=== PATIENT | female | born 1955 | race Caucasian/White ===

== ENCOUNTER 2020-08-04 07:16 | Outpatient (RCR) | payer BC, SELFPAY ==
[2020-08-04] MEDS: COVID-19 VACC, MRNA(PFIZER)/PF 30 MCG/0.3 ML SYRINGE IM (16:54)
[2020-08-25] MEDS: COVID-19 VACC, MRNA(PFIZER)/PF 30 MCG/0.3 ML SYRINGE IM (14:28)
== END 2020-11-03 23:59 ==
LOC: IMMUN 07:16
PROVIDERS: PCP Family Medicine; Referring Provider Family Medicine; Visit Provider Family Medicine
DX: Z23 Encounter for immunization (principal)
CPT/HCPCS: 0001A; 0002A; 91300

== ENCOUNTER → 2020-08-06 07:23 | Outpatient (CLI) | payer BC, SELFPAY ==
--- NOTE | 2020-08-06 07:26 | CT_ITS ---
STUDY: LOW DOSE CT LUNG CANCER SCREENING REASON FOR EXAM: Female, 65 years old. Code use. COPD without exacerbation. RADIATION DOSAGE (If Supplied By Facility): CTDIvol = ( 3.02 ) mGy, DLP = ( 98.55 ) mGycm TECHNIQUE: No contrast was administered. Low dose technique was utilized (average mAS-38 and kVp 120). 1.25 mm axial source images with a slice interval of 1.25-mm were reconstructed in lung windows. 2.5 mm axial source images with a slice interval of 2.5-mm were reconstructed in lung windows. 5.0 mm axial source images with a slice interval of 5.0-mm were reconstructed in soft tissue windows. Nodule measured using lung windows on PACS and/or independent workstation with automated measurement of minimum and maximum diameter. Nodule measurement reported as average diameter rounded to the nearest whole number. Growth is defined as an increase ins size of greater than 1.5 mm. COMPARISON: None. NODULES: Nodule #: 1 Density: Solid Lung location: Right upper lobe: Pleural-based Location in series: Series Number: 2 Image: 39 Size - D1 x D2 mm: 2 x 2 mm: 2 mm average diameter Margin: Fuzzy Shape: Brown Calcification: No Fat: No Temporal comparison: None Nodule #: 2 Density: Solid Lung location: Left upper lobe: Pleural-based Location in series: Series Number: 2 Image: 59 Size - D1 x D2 mm: 2 x 2 mm: 2 mm average diameter Margin: Fuzzy Shape: Triangular Calcification: No Fat: No Temporal comparison: None Nodule #: 3 Density: Solid Lung location: Left upper lobe: Pleural-based Location in series: Series Number: 2 Image: 74 Size - D1 x D2 mm: 2 x 2 mm: 2 mm average diameter Margin: Smooth Shape: Round Calcification: No Fat: No Temporal comparison: None Total lung nodules (excluding granulomas): 3 Emphysema: There is mild emphysematous changes of the lungs. Endobronchial lesion: None Aorta: Atherosclerotic changes of the thoracic aorta without aneurysm. Coronary arteries: Coronary artery calcifications. Heart: The heart is normal in size. Mitral valve calcifications. Pulmonary artery: Normal Mediastinal nodes: None Other chest and abdominal findings: Degenerative changes of the lower thoracic spine. CT/Low Dose CT Lung Screening IMPRESSION: Lung-RADS category 2 - Continue annual screening with LDCT in 12 months. IMPORTANT NOTES FOR USE: ACR Lung-RADS Version 1.0 Assessment Categories Release Date: September 23, 2013 Category: Coded 0-4 bases on nodule(s) with highest degree of suspicion. Negative screen is defined as categories 1 and 2; a positive screen is defined as categories 3 and 4. Category 3 and 4A nodules that are unchanged on interval CT should be coded as category 2, and individuals returned to screening in 12 months. Category 4X: Category 3 or 4 nodules with additional imaging findings that increase the suspicion of lung cancer, such as spiculation, GGN that doubles in size in 1 year, enlarged lymph notes, etc. Category Modifiers: S (significant finding unrelated to lung cancer) and C (prior history of treated lung cancer) may be added to the 0-4 Lung-RADS Electronically Signed: Ferny Griffith DO at 17:13 EST Tel [phone], Service support ,
== END ==
PROVIDERS: PCP Family Medicine; Visit Provider Family Medicine
DX: J44.9 Chronic obstructive pulmonary disease, unspecified (principal); Z12.2 Encounter for screening for malignant neoplasm of respiratory organs; Z72.0 Tobacco use
CPT/HCPCS: 71271

== ENCOUNTER → 2022-09-08 | Outpatient (CLI) | payer MEDICARE, SELFPAY ==
--- NOTE | 2022-09-08 14:15 | CT_ITS ---
STUDY: LOW DOSE CT LUNG CANCER SCREENING REASON FOR EXAM: Female, 67 years old. One pack per day smoker x40 years RADIATION DOSAGE (If Supplied By Facility): CTDIvol = ( 1.59 ) mGy, DLP = ( 55.99 ) mGycm TECHNIQUE: No contrast was administered. Low dose technique was utilized (average mAS-38 and kVp 120). 1.25 mm axial source images with a slice interval of 1.25-mm were reconstructed in lung windows. 2.5 mm axial source images with a slice interval of 2.5-mm were reconstructed in lung windows. 5.0 mm axial source images with a slice interval of 5.0-mm were reconstructed in soft tissue windows. COMPARISON: 08/06/2020 Findings: Lung windows show the lungs to be normally expanded. Stable faint 2 mm nodule in the right upper lobe on axial image 52. Stable faint 2 mm nodule in the left upper lobe on axial image 72. There is a stable 3 mm noncalcified nodule in the right upper lobe on axial image 78. No new suspicious noncalcified mass or nodule is noted. There are a few scattered punctate granulomas calcifications noted. No organized infiltrate or effusion. Limited soft tissue windows show normal-appearing thyroid gland. No suspicious axillary, mediastinal, or perihilar mass or adenopathy. No pericardial effusions or calcified coronary vessels. Limited cuts through the upper abdomen do not show a suspicious abnormality. Bony structures show degenerative change. CT/Low Dose CT Lung Screening IMPRESSION: Lung-RADS category 2 - Continue annual screening with LDCT in 12 months. IMPORTANT NOTES FOR USE: ACR Lung-RADS Version 1.1 Assessment Categories Release Date: 2018 Category: Coded 0-4 bases on nodule(s) with highest degree of suspicion. Negative screen is defined as categories 1 and 2; a positive screen is defined as categories 3 and 4. Category 3 and 4A nodules that are unchanged on interval CT should be coded as category 2, and individuals returned to screening in 12 months. Category 4X: Category 3 or 4 nodules with additional imaging findings that increase the suspicion of lung cancer, such as spiculation, GGN that doubles in size in 1 year, enlarged lymph notes, etc. Category Modifiers: S (significant finding unrelated to lung cancer) Electronically Signed: Shaggy Cabello MD at 14:55 EDT ,
== END | disposition home or self-care (01) ==
LOC: CT 14:10
PROVIDERS: PCP Registered Nurse; Referring Provider Registered Nurse; Visit Provider Registered Nurse
DX: J44.9 Chronic obstructive pulmonary disease, unspecified (principal); Z87.891 Personal history of nicotine dependence
CPT/HCPCS: 71271

== ENCOUNTER → 2024-08-13 | Outpatient (CLI) | payer MEDICARE, SELFPAY ==
[2024-08-13 07:38] LABS: Hematocrit 46.4 % (37-47); Hemoglobin 15.6 g/dL (12.0-15.0); Mean Corp Hgb Conc 33.6 g/dL (32-36); Mean Corpuscular Hgb 29.9 pg (27.0-32.0); Mean Corpuscular Volume 89.1 fL (81-99); Mean Platelet Vol. 10.9 fl (6.2-12.0); Platelet Count 302 K/mm3 (150-450); RBC Distribution Width CV 14.6 % (11.6-14.6); RBC Distribution Width SD 47.6 fl (35.1-43.9); Red Blood Count 5.21 M/mm3 (4.2-5.4)
[2024-08-13 08:24] LABS: Hemoglobin A1c 5.9 % (<=5.6)
[2024-08-13 08:31] LABS: ALB/GLOB Ratio 1.5 RATIO (0.9-2.4); AST(SGOT) 18 U/L (<=31); Alanine Aminotransfer ALT/SGPT 18 U/L (<=34); Albumin, Serum 4.3 g/dL (3.4-4.8); Alkaline Phosphatase 111 U/L (35-104); Anion Gap 13 (5-15); BUN 13 mg/dL (4-19); BUN/Creat Ratio 14.2 RATIO (10-20); Calcium,Total 10.1 mg/dL (7.6-11.0); Carbon Dioxide 22.9 mmol/L (21.0-32.0); Chloride 103 mmol/L (98-108); Cholesterol 221 mg/dL (<=200); Creatinine, Serum 0.92 mg/dL (0.70-1.20); EST Glomerular Filtration Rate 68 (>60); Globulin 2.9 g/dL (2.2-4.2); Glucose 118 mg/dL (70-99); High Density Lipoprotein 78 mg/dL; Low Density Lipoprotein Calc. 128 mg/dL; Potassium 4.7 mmol/L (3.3-5.1); Protein, Total 7.2 g/dL (5.9-8.4); Sodium Level 139 mmol/L (133-145); Thyroid Stim Hormone (TSH) 0.943 uIU/mL (0.300-4.200); Triglycerides 76 mg/dL; Very Low Density Lipoprotein 15 mg/dL (5-40); Vitamin D,25 Hydroxy 52.1 ng/mL (30-100); cholesterol:hdl ratio screen 2.83
== END | disposition home or self-care (01) ==
LOC: LAB 06:12
PROVIDERS: PCP Registered Nurse; Visit Provider Registered Nurse
DX: Z00.00 Encounter for general adult medical examination without abnormal findings (principal); Z13.1 Encounter for screening for diabetes mellitus; Z13.29 Encounter for screening for other suspected endocrine disorder; Z13.21 Encounter for screening for nutritional disorder
CPT/HCPCS: 36415; 80053; 80061; 82306; 83036; 84439; 84443; 85027

== ENCOUNTER → 2025-03-19 | Outpatient (CLI) | payer MEDICARE, SELFPAY ==
--- OUTSIDE RECORDS SUMMARY | 2025-03-19 06:53 | XMS RPT_ITS | CCD ---
Author Organization [facility] Care Team Providers Care Cardiopulmonary Technician And Eeg Tech Name Role Phone CHRISTIN [employer] I ASSEMBLER-DECK HAND, TELMA A Primary Care Physi megan CHRISTIN [employer] I ASSEMBLER-DECK HAND, TELMA A Attending Un available CHRISTIN [employer] I ASSEMBLER-DECK HAND, TELMA A Primary Care Un available CHRISTIN [employer] I ASSEMBLER-DECK HAND, TELMA Garcia Attending Un available CHRISTIN [employer] I ASSEMBLER-DECK HAND, TELMA A Primary Care Un available CHRISTIN [employer] I ASSEMBLER-DECK HAND, TELMA Garcia Attending Un available CHRISTIN [employer] I ASSEMBLER-DECK HAND, TELMA A Primary Care Un available CAROLINA EASON, DR YEN Francois Attending Unavailable CHRISTIN [employer] I ASSEMBLER-DECK HAND, TELMA Garcia Primary Care Un available CHRISTIN [employer] I ASSEMBLER-DECK HAND, TELMA Garcia Attending Un available CHRISTIN [employer] I ASSEMBLER-DECK HAND, TELMA A Primary Care Un available CAROLINA EASON, DR YEN Francois Attending Unavailable CHRISTIN [employer] I ASSEMBLER-DECK HAND, TELMA A Primary Care Un available CHRISTIN [employer] I ASSEMBLER-DECK HAND, TELMA A Primary Care Un available CAROLINA EASON, DR YEN Francois Attending Unavailable Christin FOREST NURSERY SUPERVISOR, Telma Attending Darby Waller FOREST NURSERY SUPERVISOR, Telma Primary Care Unavailnithya Waller FOREST NURSERY SUPERVISOR-C, Telma Primary Care Provider Christin FOREST NURSERY SUPERVISOR-C, Telma Attending Provider Medications Current Medications Medication Drug Class(es) Dates Sig (Normalized) Sig (Original) albuterol MDI (90 mcg/inh) CFC free inhalation aerosol (4 sources) Start: 11-27-2023 End: 05-25-2024 take 2 puff(s) by inhalation every six hours as needed for wheezing albuterol MDI (90 mcg/inh) CFC free inhalation aerosol 2 puff(s), Inhalation, q6h, PRN as needed for wheezing, # 18 gram(s), 5 Refill(s), Pharmacy: [facility], COPD without exacerbation Multiple lung nodules on CT, 160, cm, 11/27/23 10:56:00 EDT, Height, kg, 11/27/23 10:56:00 EDT, Dosing Weight Start Date: 11/27/23 Stop Date: 05/25/24 Status: Ordered amLODIPine 5 mg oral tablet (5 sources) Dihydropyridine Calcium Channel José Miguel Start: 09-08-2023 End: 09-02-2024 amLODIPine 5 mg oral tablet Dose : 5 mg = 1 tab(s), Oral, qDay, # 30 tab(s), 5 Refill(s), Pharmacy: [facility], COPD without exacerbation, 160, cm, 02/01/24 13:04:00 EDT, Height, kg, 02/01/24 13:04:00 EDT, Dosing Weight Start Date: 03/06/24 Stop Date: 09/02/24 Status: Ordered Start: 03-10-2023 End: 09-06-2023 amLODIPine 5 mg oral tablet Dose : 5 mg = 1 tab(s), Oral, qDay, # 30 tab(s), 5 Refill(s), Pharmacy: [facility], COPD without exacerbation, 160, cm, 03/10/23 12:23:00 EDT, Height, kg, 03/10/23 12:23:00 EDT, Dosing Weight Start Date: 03/10/23 Stop Date: 09/06/23 Status: Ordered aspirin 81 mg delayed release oral tablet (3 sources) Platelet Aggregation Inhibitor, Nonsteroidal Anti-inflammatory Drug Start: 02-01-2024 aspirin 81 mg oral delayed release tablet Dose : 81 mg = 1 tab(s), Oral, Daily, # 30 tab(s), 0 Refill(s), other reason (Rx) Start Date: 02/01/24 Status: Ordered atorvastatin 40 mg oral tablet (3 sources) HMG-CoA Reductase Inhibitor Start: 02-01-2024 atorvastatin 40 mg oral tablet Dose : 40 mg = 1 tab(s), Oral, Daily, # 90 tab(s), 3 Refill(s), Pharmacy: [facility], 160, cm, 02/01/24 13:04:00 EDT, Height, kg, 02/01/24 13:04:00 EDT, Dosing Weight Start Date: 02/01/24 Status: Ordered Breztri Aerosphere 160 mcg-9 mcg-4.8 mcg/inh inhalation aerosol (4 sources) Start: 11-27-2023 End: 05-25-2024 take 1 dose by mouth twice daily Breztri Aerosphere 160 mcg-9 mcg-4.8 mcg/inh inhalation aerosol Dose = 2 puff(s), Inhalation, BID, rinse mouth and throat after use, # 3 EA, 1 Refill(s), Pharmacy: [facility], COPD without exacerbation Multiple lung nodules on CT, 160, cm, 11/27/23 10:56:00 EDT, Height, kg, 11/27/23 10:56:00 EDT, Dosing Weight Start Date: 11/27/23 Stop Date: 05/25/24 Status: Ordered famotidine 10 mg oral tablet (1 source) Histamine-2 Receptor Antagonist Start: 04-12-2024 famotidine 10 mg oral tablet Dose : 10 mg = 1 tab(s), Oral, qDay, # 14 tab(s), 0 Refill(s) Start Date: 04/12/24 Status: Ordered fluticasone / salmeterol (2 sources) Corticosteroid, beta2-Adrenergic Agonist Start: 02-27-2023 End: 05-28-2023 take 1 dose by inhalation twice daily Advair Diskus 250 mcg-50 mcg inhalation powder Dose = 1 puff(s), Inhalation, BID, # 1 EA, 2 Refill(s), Pharmacy: [facility], COPD without exacerbation, 160, cm, 08/24/22 11:24:00 EDT, Height, kg, 08/24/22 11:24:00 EDT, Dosing Weight Start Date: 02/27/23 Stop Date: 05/28/23 Status: Ordered Start: 08-24-2022 End: 11-22-2022 take 1 dose by inhalation twice daily Advair Diskus 250 mcg-50 mcg inhalation powder Dose = 1 puff(s), Inhalation, BID, # 1 EA, 2 Refill(s), Pharmacy: [facility], COPD without exacerbation, 160, cm, 08/24/22 11:24:00 EDT, Height Start Date: 08/24/22 Stop Date: 11/22/22 Status: Ordered lisinopril 40 mg oral tablet (6 sources) Angiotensin Converting Enzyme Inhibitor Start: 02-26-2024 End: 05-26-2024 lisinopril 40 mg oral tablet Dose : 80 mg = 2 tab(s), Oral, qDay, filling in lieu of pcp, # 180 tab(s), 0 Refill(s), Pharmacy: [facility], 160, cm, 02/01/24 13:04:00 EDT, Height, kg, 02/01/24 13:04:00 EDT, Dosing Weight Start Date: 02/26/24 Stop Date: 05/26/24 Status: Ordered Start: 04-04-2022 End: 02-22-2024 lisinopril 40 mg oral tablet Dose : 80 mg = 2 tab(s), Oral, qDay, # 180 tab(s), 3 Refill(s), Pharmacy: [facility], 160, cm, 08/24/22 11:24:00 EDT, Height, kg, 08/24/22 11:24:00 EDT, Dosing Weight Start Date: 02/27/23 Stop Date: 02/22/24 Status: Ordered meclizine hydrochloride 25 m g oral tablet (1 source) Antiemetic Start: 07-08-2022 End: 09-06-2022 meclizine 25 mg oral tablet Dose : 25 mg = 1 tab(s), Oral, TID, PRN as needed for dizziness, X 30 day(s), # 30 tab(s), 1 Refill(s), 09/06/22 12:36:00 EDT, Pharmacy: [facility], Vertigo, 160, cm, 07/08/22 12:20:00 EST, Height Start Date: 07/08/22 Stop Date: 09/06/22 Status: Ordered melatonin 10 mg oral capsule (6 sources) Start: 02-01-2024 melatonin 10 m g oral capsule Dose : 10 mg = 1 cap(s), Oral, qHS, PRN for insomnia, # 90 cap(s), 0 Refill(s) Start Date: 02/01/24 Status: Ordered Start: 03-11-2019 melatonin 5 mg oral tablet Dose : 5 mg = 1 tab(s), Oral, qHS, PRN as needed for insomnia, # 60 tab(s), 0 Refill(s) Start Date: 03/11/19 Status: Ordered 24 hr metoprolol succinate 50 mg extended release oral tablet (3 sources) beta-Adrenergic José Miguel Start: 02-01-2024 Toprol -XL 50 mg oral tablet, extended release Dose : 50 mg = 1 tab(s), Oral, qDay, # 90 tab(s), 3 Refill(s), Pharmacy: [facility], 160, cm, 02/01/24 13:04:00 EDT, Height, kg, 02/01/24 13:04:00 EDT, Dosing Weight Start Date: 02/01/24 Status: Ordered montelukast 10 mg oral tablet (6 sources) Leukotriene Receptor Antagonist Start: 08-16-2023 montelukast 10 mg oral tablet Dose : 10 mg = 1 tab(s), Oral, qDay, # 90 tab(s), 1 Refill(s), Pharmacy: [facility], COPD without exacerbation, 160, cm, 03/10/23 12:23:00 EDT, Height, kg, 03/10/23 12:23:00 EDT, Dosing Weight Start Date: 08/16/23 Status: Ordered Start: 02-27-2023 montelukast 10 mg oral tablet Dose : 10 mg = 1 tab(s), Oral, qDay, # 90 tab(s), 2 Refill(s), Pharmacy: [facility], COPD without exacerbation, 160, cm, 08/24/22 11:24:00 EDT, Height, kg, 08/24/22 11:24:00 EDT, Dosing Weight Start Date: 02/27/23 Status: Ordered Start: 08-24-2022 montelukast 10 mg oral tablet Dose : 10 mg = 1 tab(s), Oral, qDay, # 90 tab(s), 0 Refill(s), Pharmacy: [facility], COPD without exacerbation, 160, cm, 08/24/22 11:24:00 EDT, Height Start Date: 08/24/22 Status: Ordered Multi-Day Plus Minerals oral tablet (6 sources) Start: 03-11-2019 take 1 tablet by mouth once daily Multi-Day Plus Minerals oral tablet Dose = 1 tab(s), Oral, Daily, # 30 tab(s), 0 Refill(s) Start Date: 03/11/19 Status: Ordered pravastatin sodium 40 mg oral tablet (3 sources) HMG-CoA Reductase Inhibitor Start: 08-16-2023 End: 02-12-2024 pravastatin 40 mg oral tablet Dose : 40 mg = 1 tab(s), Oral, qHS, # 90 tab(s), 1 Refill(s), Pharmacy: [facility], 160, cm, 03/10/23 12:23:00 EDT, Height, kg, 03/10/23 12:23:00 EDT, Dosing Weight Start Date: 08/16/23 Stop Date: 02/12/24 Status: Ordered Start: 08-24-2022 take 1 tablet by josé miguel once daily pravastatin 40 mg oral tablet See Instructions, TAKE 1 TABLET BY MOUTH EVERY DAY, # 90 tab(s), 3 Refill(s), Pharmacy: [facility], 160, cm, 08/24/22 11:24:00 EDT, Height, kg, 08/24/22 11:24:00 EDT, Dosing Weight Start Date: 08/24/22 Status: Ordered Stool Softener with Laxative (1 source) Start: 04-12-2024 Stool Softener with Laxative Oral, qHS, 0 Refill(s) Start Date: 04/12/24 Status: Ordered Vitamin D3 (6 sources) Start: 03-11-2019 take 1 tablet by mouth once daily Vitamin D3 Dose : 5,000 Int unit =, Oral, Daily, # 30 tab(s), 0 Refill(s) Start Date: 03/11/19 Status: Ordered Completed/Discontinued Medications Medication Drug Class(es) Dates Sig (Normalized) Sig (Original) MiscMED Miscellaneous Medication (1 source) Start: 03-10-2023 MiscMED Miscellaneous Medication See Instructions, Takes a magneisum supplement, 250mg once day, 0 Refill(s), 72.9 Start Date: 03/10/23 Status: Ordered Problems Problem Classification Problem Date Documented Da te Episodic/Chronic Allergic reactions (7 sources) Allergic disposition; Translations: [Allergy, unspecified, initial encounter] Episodic Cardiac dysrhythmias (9 sources) Ventricular premature beats; Translations: [Nonsustained ventricular tachycardia ] 07-29-2020 Chronic Cataract (6 sources) Cataract 06-03-2019 Chronic Chronic kidney disease (4 sources) Chronic kidney disease stage 3 11-27-2023 Chronic Chronic obstructive pulmonary disease and bronchiectasis (7 sources) Chronic obstructive lung disease; Translations: [Chronic obstructive pulmonary disease, unspecified] Chronic Conditions associated with dizziness or vertigo (6 sources) Vertigo 07-08-2022 Episodic Coronary atherosclerosis and other heart disease (3 sources) Calcification of coronary artery 01-31-2024 Chronic Disorders of lipid metabolism (6 sources) Dyslipidemia 06-03-2019 Chronic Esophageal disorders (6 sources) Gastroesophageal reflux disease 04-01-2022 Chronic Essential hypertension (16 sources) Hypertensive disorder; Translations: [Essential (primary) hypertension] Onset: 3 07-29-2020 Chronic Hepatitis (6 sources) Viral hepatitis C 06-03-2019 Episodic Other gastrointestinal disorders (6 sources) Constipation 04-01-2022 Episodic Other lower respiratory disease (6 sources) Multiple nodules of lung 04-01-2022 Episodic Other screening for suspected conditions (not mental disorders or infectious disease) (2 sources) Encounter for screening mammogram for malignant neoplasm of breast; Translations: [Encounter for screening mammogram for malignant neoplasm of breast] Onset: Episodic Residual codes; unclassified (6 sources) Tobacco user 06-04-2019 Episodic Substance-related disorders (6 sources) Nicotine dependence 07-08-2022 Chronic Unclassified (9 sources) Patient encounter status 03-10-2023 Results Test Name Value Interpretation Reference Range Facility Anion gap in Serum or Plasma Ordered By: Telma Waller on 08-13-2024 Anion gap [Moles/Vol] 13 mmol/L - [facility] BUN/creatinine ratioOrdered By: Telma Waller on 08-13-2024 Urea nitrogen/Creatinine [Mass ratio] 14.2 mg/mg 03-17 [facility] Bilirubin, totalOrdered By: Telma Waller on 08-13-2024 Bilirubin [Mass/Vol] 0.40 mg/dL 0.00-1.30 [facility] CBC-Complete Blood Cnt No Di ffon 08-13-2024 Erythrocyte distribution width (RBC) [Ratio] 14.6 % Normal 11.6-14.6 [facility] Comment on above: Performed By: #### L 500.4050, L100.0500, L501.9520, L506.0400, L506.1001, L500.4100, L501.9985 #### [facility] [address] [place], [address] Hematocrit (Bld) [Volume fraction] 46.4 % Normal 37-47 [facility] Comment on above: Performed By: #### L 500.4050, L100.0500, L501.9520, L506.0400, L506.1001, L500.4100, L501.9985 #### [facility] [address] [place], [address] Hemoglobin (Bld) [Mass/Vol] 15.6 g/dL High 12.0-15.0 [facility] Comment on above: Performed By: #### L 500.4050, L100.0500, L501.9520, L506.0400, L506.1001, L500.4100, L501.9985 #### [facility] [address] [place], [address] MCH (RBC) [Entitic mass] 29.9 pg Normal 27.0-32.0 [facility] Comment on above: Performed By: #### L 500.4050, L100.0500, L501.9520, L506.0400, L506.1001, L500.4100, L501.9985 #### [facility] [address] [place], [address] MCHC (RBC) [Mass/Vol] 33.6 g/dL Normal 32-36 [facility] Comment on above: Performed By: #### L 500.4050, L100.0500, L501.9520, L506.0400, L506.1001, L500.4100, L501.9985 #### [facility] [address] [place], [address] MCV (RBC) [Entitic vol] 89.1 fL Normal 81-99 [facility] Comment on above: Performed By: #### L 500.4050, L100.0500, L501.9520, L506.0400, L506.1001, L500.4100, L501.9985 #### [facility] [address] [place], [address] Platelet mean volume (Bld) [Entitic vol] 10.9 fL Normal 6.2-12.0 [facility] Comment on above: Performed By: #### L 500.4050, L100.0500, L501.9520, L506.0400, L506.1001, L500.4100, L501.9985 #### [facility] [address] [place], [address] Platelets (Bld) [#/Vol] 302 10*3/uL Normal 150-450 [facility] Comment on above: Performed By: #### L 500.4050, L100.0500, L501.9520, L506.0400, L506.1001, L500.4100, L501.9985 #### [facility] [address] [place], [address] RBC (Bld) [#/Vol] 5.21 10*6/uL Normal 4.2-5.[address] [facility] Comment on above: Performed By: #### L 500.4050, L100.0500, L501.9520, L506.0400, L506.1001, L500.4100, L501.9985 #### [facility] [address] [place], [address] RDW SD 47.6 fl High 35.1-43.9 [facility] Comment on above: Performed By: #### L 500.4050, L100.0500, L501.9520, L506.0400, L506.1001, L500.4100, L501.9985 #### [facility] [address] [place], [place], [id number] (706) WBC (Bld) [#/Vol] 9.0 10*3/uL Normal 4.4-11.0 [facility] Comment on above: Performed By: #### L 500.4050, L100.0500, L501.9520, L506.0400, L506.1001, L500.4100, L501.9985 #### [facility] [address] [place], [place], [id number] Calculated very low density lipoprotein (VLDL) cholesterol measurementOrdered By: Telma Waller on 08-13-2024 VLDL Cholesterol 15 mg/dL 5-40 [facility] Carbon dioxide, total [Moles /volume] in Central venous bloodOrdered By: Telma Waller on 08-13-2024 CO2 [Moles/Vol] 22.9 mmol/L 21.0-32.0 [facility] Chloride assayOrdered By: Doug Waller on 08-13-2024 Chloride [Moles/Vol] 103 mmol/L 98-108 [facility] Comprehensive Metabolic Prof ilon 08-13-2024 Albumin [Mass/Vol] 4.3 g/dL Normal 3.4-4.8 [facility] Comment on above: Performed By: #### L 500.4050, L100.0500, L501.9520, L506.0400, L506.1001, L500.4100, L501.9985 #### [facility] [address] [place], [address] Albumin/Globulin [Mass ratio] 1.5 {ratio} Normal 0.9-2.4 [facility] Comment on above: Performed By: #### L 500.4050, L100.0500, L501.9520, L506.0400, L506.1001, L500.4100, L501.9985 #### [facility] [address] [place], [address] ALK PHOS 111 U/L High 35-104 [facility] Comment on above: Performed By: #### L 500.4050, L100.0500, L501.9520, L506.0400, L506.1001, L500.4100, L501.9985 #### [facility] [address] [place], [address] ALT [Catalytic activity/Vol] 18 U/L Normal <=34 [facility] Comment on above: Performed By: #### L 500.4050, L100.0500, L501.9520, L506.0400, L506.1001, L500.4100, L501.9985 #### [facility] [address] [place], [address] AST [Catalytic activity/Vol] 18 U/L Normal <=31 [facility] Comment on above: Performed By: #### L 500.4050, L100.0500, L501.9520, L506.0400, L506.1001, L500.4100, L501.9985 #### [facility] [address] [place], [address] Bilirubin [Mass/Vol] 0.40 mg/dL Normal 0.00-1.30 [facility] Comment on above: Performed By: #### L 500.4050, L100.0500, L501.9520, L506.0400, L506.1001, L500.4100, L501.9985 #### [facility] [address] [place], [address] BUN/CRE 14.2 RATIO Normal 10-20 [facility] Comment on above: Performed By: #### L 500.4050, L100.0500, L501.9520, L506.0400, L506.1001, L500.4100, L501.9985 #### [facility] [address] [place], [address] Calcium [Mass/Vol] 10.1 mg/dL Normal 7.6-11.0 [facility] Comment on above: Performed By: #### L 500.4050, L100.0500, L501.9520, L506.0400, L506.1001, L500.4100, L501.9985 #### [facility] [address] [place], [address] Chloride [Moles/Vol] 103 mmol/L Normal 98-108 [facility] Comment on above: Performed By: #### L 500.4050, L100.0500, L501.9520, L506.0400, L506.1001, L500.4100, L501.9985 #### [facility] [address] [place], [address] CO2 [Moles/Vol] 22.9 mmol/L Normal 21.0-32.0 [facility] Comment on above: Performed By: #### L 500.4050, L100.0500, L501.9520, L506.0400, L506.1001, L500.4100, L501.9985 #### [facility] [address] [place], [address] Creatinine [Mass/Vol] 0.92 mg/dL Normal 0.70-1.20 [facility] Comment on above: Performed By: #### L 500.4050, L100.0500, L501.9520, L506.0400, L506.1001, L500.4100, L501.9985 #### [facility] [address] [place], [address] GAP 13 Normal 5-15 [facility] Comment on above: Performed By: #### L 500.4050, L100.0500, L501.9520, L506.0400, L506.1001, L500.4100, L501.9985 #### [facility] [address] [place], [address] GFR/1.73 sq M.predicted among non-blacks MDRD (S/P/Bld) [Vol rate/Area] 68 mL/min/{1.73_m2} Normal >60 [facility] Comment on above: Result Comment: mL/m in/1.73m2 CKD-EPI Creatinine Equation (2020) Performed By: #### L 500.4050, L100.0500, L501.9520, L506.0400, L506.1001, L500.4100, L501.9985 #### [facility] [address] [place], [address] Globulin (S) [Mass/Vol] 2.9 g/dL Normal 2.2-4.2 [facility] Comment on above: Performed By: #### L 500.4050, L100.0500, L501.9520, L506.0400, L506.1001, L500.4100, L501.9985 #### [facility] [address] [place], [address] Glucose [Mass/Vol] 118 mg/dL High 70-99 [facility] Comment on above: Performed By: #### L 500.4050, L100.0500, L501.9520, L506.0400, L506.1001, L500.4100, L501.9985 #### [facility] [address] [place], [address] Potassium [Moles/Vol] 4.7 mmol/L Normal 3.3-5.1 [facility] Comment on above: Performed By: #### L 500.4050, L100.0500, L501.9520, L506.0400, L506.1001, L500.4100, L501.9985 #### [facility] [address] [place], [address] Sodium [Moles/Vol] 139 mmol/L Normal 133-145 [facility] Comment on above: Performed By: #### L 500.4050, L100.0500, L501.9520, L506.0400, L506.1001, L500.4100, L501.9985 #### [facility] [address] [place], [address] T PROT 7.2 g/dL Normal 5.9-8.4 [facility] Comment on above: Performed By: #### L 500.4050, L100.0500, L501.9520, L506.0400, L506.1001, L500.4100, L501.9985 #### [facility] [address] [place], [address] Urea nitrogen [Mass/Vol] 13 mg/dL Normal 4-19 [facility] Comment on above: Performed By: #### L 500.4050, L100.0500, L501.9520, L506.0400, L506.1001, L500.4100, L501.9985 #### [facility] [address] [place], [address] Erythrocyte distribution wid th ratioOrdered By: Telma Waller on 08-13-2024 Erythrocyte distribution width (RBC) [Ratio] 14.6 % 11.6-14.6 [facility] Erythrocyte distribution wid th standard deviationOrdered By: Telma Waller on 08-13-2024 Erythrocyte distribution width (RBC) [Entitic vol] 47.6 fL High 35.1-43.9 [facility] GFR/1.73 sq M.predicted nadir g non-blacks MDRD (S/P/Bld) [Vol rate/Area]Ordered By: Telma Waller on 08-13-2024 Estimated GFR (MDRD) Non-Af Amer 68 >60 [facility] Comment on above: mL/min/1.73m2 CKD-EP I Creatinine Equation (2020) Hematocrit Auto (Bld) [Volum e fraction]Ordered By: Telma Waller on 08-13-2024 Hematocrit (Bld) [Volume fraction] 46.4 % 37-47 [facility] Hemoglobin A1con 08-13-2024 HbA1c (Bld) [Mass fraction] 5.9 % Normal <=5.6 [facility] Comment on above: Performed By: #### L 500.4050, L100.0500, L501.9520, L506.0400, L506.1001, L500.4100, L501.9985 #### [facility] [address] [place], [place], [id number] Hemoglobin A1c percentageOrd ered By: Telma Waller on 08-13-2024 HbA1c (Bld) [Mass fraction] 5.9 % >5.7 [facility] Hemoglobin measurementOrdere d By: Telma Waller on 08-13-2024 Hemoglobin (Bld) [Mass/Vol] 15.6 g/dL High 12.0-15.0 [facility] L506.1001on 08-13-2024 Vitamin D 25-OH 52.1 ng/mL Normal 30-100 [facility] Comment on above: Result Comment: Carrie min D Status Deficiency: <20 ng/mL (50nmol/L) Insufficiency: 20-30 ng/mL (50-75 nmol/L) Sufficiency: 30-100 ng/mL (75-250 nmol/L) Toxicity: >100 ng/mL (>250 nmol/L) Performed By: #### L 500.4050, L100.0500, L501.9520, L506.0400, L506.1001, L500.4100, L501.9985 #### [facility] [address] [place], [place], [id number] LDL calc ser/plasOrdered By: Telma Waller on 08-13-2024 LDL Cholesterol, Calculated 128 mg/dL [facility] Comment on above: Gpzmlpuyye=691-638 m g/dL & Higher Ynln=557 mg/dL or greater Laboratory - Chemistry and C hemistry - challengeOrdered By: Telma Waller on 08-13-2024 AST [Catalytic activity/Vol] 18 U/L <32 [facility] Lipid Profileon 08-13-2024 CHOL:HDL 2.83 Normal [facility] Comment on above: Performed By: #### L 500.4050, L100.0500, L501.9520, L506.0400, L506.1001, L500.4100, L501.9985 #### [facility] [address] [place], [address] (106) Cholesterol [Mass/Vol] 221 mg/dL High <=200 [facility] Comment on above: Result Comment: Chol esterol level, Desirable <200 mg/dL Borderline high cholesterol 200-239 mg/dL High cholesterol >=240 mg/dL Recommendations of the NCEP Adult Treatment Panel for the following risk-cutoff thresholds for the [place] population. Performed By: #### L 500.4050, L100.0500, L501.9520, L506.0400, L506.1001, L500.4100, L501.9985 #### [facility] [address] [place], [place], [phone] Cholesterol in HDL [Mass/Vol] 78 mg/dL Normal [facility] Comment on above: Result Comment: Renetta onal Cholesterol Education Program (NCEP) guidelines: <40 mg/dL: Low HDL-cholesterol (major risk factor for CHD) >= 60 mg/dL: High HDL-cholesterol (negative risk factor for CHD) HDL-cholesterol is affected by a number of factors, e.g. smoking, exercise, hormones, sex and age. Performed By: #### L 500.4050, L100.0500, L501.9520, L506.0400, L506.1001, L500.4100, L501.9985 #### [facility] [address] [place], [place], [phone] Cholesterol in LDL [Mass/Vol] 128 mg/dL Normal [facility] Comment on above: Result Comment: Bord ommreb=540-539 mg/dL Higher Rmoo=636 mg/dL or greater Performed By: #### L 500.4050, L100.0500, L501.9520, L506.0400, L506.1001, L500.4100, L501.9985 #### [facility] [address] [place], [address] [phone]) Cholesterol in VLDL [Mass/Vol] 15 mg/dL Normal 5-40 [facility] Comment on above: Performed By: #### L 500.4050, L100.0500, L501.9520, L506.0400, L506.1001, L500.4100, L501.9985 #### [facility] [address] [place], [address] Triglyceride [Mass/Vol] 76 mg/dL Normal [facility] Comment on above: Result Comment: The drugs N-Acetylcysteine and Metamizole may falsely depress this assay. Normal range: <150 mg/dL Borderline High: 150-199 mg/dL High: 200-499 mg/dL Very High: >500 mg/dL Performed By: #### L 500.4050, L100.0500, L501.9520, L506.0400, L506.1001, L500.4100, L501.9985 #### [facility] [address] [place], [address] MCV (mean corpuscular volume ) determinationOrdered By: Telma Waller on 08-13-2024 MCV (RBC) [Entitic vol] 89.1 fL 81-99 [facility] [place] [facility] Mean corpuscular hemoglobin (MCH) determinationOrdered By: Telma Waller on 08-13-2024 MCH (RBC) [Entitic mass] 29.9 pg 27.0-32.0 [facility] Mean corpuscular hemoglobin concentration (MCHC) determinationOrdered By: Telma Waller on 08-13-2024 MCHC (RBC) [Mass/Vol] 33.6 g/dL 32-36 [facility] Mean platelet volume determi nationOrdered By: Telma Waller on 08-13-2024 Platelet mean volume (Bld) [Entitic vol] 10.9 fL 6.2-12.0 [facility] Platelet countOrdered By: Doug Waller on 08-13-2024 Platelets (Bld) [#/Vol] 302 10*3/uL 150-450 [facility] Potassium (Unsp spec) [Mass/ Vol]Ordered By: Telma Waller on 08-13-2024 Potassium [Moles/Vol] 4.7 mmol/L 3.3-5.1 [facility] RBC Auto (Bld) [#/Vol]Ordere d By: Telma Waller on 08-13-2024 RBC (Bld) [#/Vol] 5.21 10*6/uL 4.2-5.[address] [facility] Screening total cholesterol/ high density lipoprotein (HDL) cholesterol ratioOrdered By: Telma Waller on 08-13-2024 Cholesterol.total/Emiliana sterol in HDL [Mass ratio] 2.83 {ratio} [facility] Serum creatinine measurement (mass/volume)Ordered By: Telma Waller on 08-13-2024 Creatinine [Mass/Vol] 0.92 mg/dL 0.70-1.20 [facility] Serum globulin measurementOr dered By: Telma Waller on 08-13-2024 Globulin (S) [Mass/Vol] 2.9 g/dL 2.2-4.2 [facility] [place] [facility] Serum glucose measurement (m ass/volume)Ordered By: Telma Waller on 08-13-2024 Glucose [Mass/Vol] 118 mg/dL High 70-99 [facility] Serum or plasma alanine pineda otransferase (ALT) measurementOrdered By: Telma Waller on 08-13-2024 ALT [Catalytic activity/Vol] 18 U/L <35 [facility] Serum or plasma albumin martha urement (mass/volume)Ordered By: Telma Waller on 08-13-2024 Albumin [Mass/Vol] 4.3 g/dL 3.4-4.8 [facility] Serum or plasma albumin/glob ulin mass ratioOrdered By: Telma Waller on 08-13-2024 Albumin/Globulin [Mass ratio] 1.5 {ratio} 0.9-2.4 [facility] Serum or plasma alkaline anshul sphatase measurementOrdered By: Telma Waller on 08-13-2024 ALP [Catalytic activity/Vol] 111 U/L High 35-104 [facility] Serum or plasma calcium martha urement (mass/volume)Ordered By: Telma Waller on 08-13-2024 Calcium [Mass/Vol] 10.1 mg/dL 7.6-11.0 [facility] Serum or plasma cholesterol in HDL measurement (mass/volume)Ordered By: Telma Waller on 08-13-2024 Cholesterol in HDL [Mass/Vol] 78 mg/dL >40 [facility] Comment on above: National Cholesterol Education Program (NCEP) guidelines:<40 mg/dL: Low HDL-cholesterol (major risk factor for CHD)>= 60 mg/dL: High HDL-cholesterol (negative risk factor for CHD)HDL-cholesterol is affected by a number of factors, e.g. smoking, exercise, hormones, sex and age. Serum or plasma cholesterol measurement (mass/volume)Ordered By: Telma Waller on 08-13-2024 Cholesterol [Mass/Vol] 221 mg/dL High <201 [facility] Comment on above: Cholesterol level, D esirable <200 mg/dLBorderline high cholesterol 200-239 mg/dLHigh cholesterol >=240 mg/dLRecommendations of the NCEP Adult Treatment Panel for the following risk-cutoff thresholds for the [place] population. Serum or plasma urea nitroge n measurement (mass/volume)Ordered By: Telma Waller on 08-13-2024 Urea nitrogen [Mass/Vol] 13 mg/dL 4-19 [facility] Sodium levelOrdered By: Tanya Waller on 08-13-2024 Sodium [Moles/Vol] 139 mmol/L 133-145 [facility] T4 Free Directon 08-13-2024 T4 FREE DIRECT 1.10 ng/dL Normal 0.76-1.46 [facility] Comment on above: Performed By: #### L 500.4050, L100.0500, L501.9520, L506.0400, L506.1001, L500.4100, L501.9985 #### [facility] [address] [place], [place], [phone] T4 freeOrdered By: Telma Waller on 08-13-2024 Free T4 [Mass/Vol] 1.10 ng/dL 0.76-1.46 [facility] TSH DL <= 0.005 mIU/L QnOrde red By: Telma Waller on 08-13-2024 Thyroid Stimulating Hormone (TSH) 0.943 uIU/mL 0.300-4.200 [facility] Thyroid Stim Hormone (TSH)on 08-13-2024 TSH 0.943 uIU/mL Normal 0.300-4.200 [facility] Comment on above: Performed By: #### L 500.4050, L100.0500, L501.9520, L506.0400, L506.1001, L500.4100, L501.9985 #### [facility] [address] [place], [place], [phone] Total proteinOrdered By: Lisa Waller on 08-13-2024 Protein [Mass/Vol] 7.2 g/dL 5.9-8.4 [facility] Triglycerides measurementOrd ered By: Telma Waller on 08-13-2024 Triglyceride [Mass/Vol] 76 mg/dL <199 [facility] Comment on above: The drugs N-Acetylcy steine and Metamizole may falsely depress this assay. Normal range: <150 mg/dLBorderline High: 150-199 mg/dLHigh: 200-499 mg/dLVery High: >500 mg/dL Vitamin D, 25-hydroxyOrdered By: Telma Waller on 08-13-2024 Vitamin D 25-Hydroxy 52.1 ng/mL 30-100 [facility] Comment on above: Vitamin D StatusDefi ciency: <20 ng/mL (50nmol/L)Insufficiency: 20-30 ng/mL (50-75 nmol/L)Sufficiency: 30-100 ng/mL (75-250 nmol/L)Toxicity: >100 ng/mL (>250 nmol/L) White blood cell (WBC) count Ordered By: Telma Waller on 08-13-2024 WBC (Bld) [#/Vol] 9.0 10*3/uL 4.4-11.0 [facility] 08-07-2024 U Creatinine 51.3 mg/dL Normal [facility] Comment on above: Performed By: #### M ALBR #### [address] [address] U Microalb 11.7 mg/L Normal [facility] Comment on above: Performed By: #### M ALBR #### [address] [place], [place] [address] U Ratio Alb/Cre 23 mg/G Normal 0-30 [facility] Comment on above: Performed By: #### M ALBR #### [address] [place], [place] [address] CT CORONARY ANGIOGRAPHY W+W/ O CONTRASTon 04-28-2024 CT CORONARY ANGIOGRAPHY W+W/O CONTRAST ORIGINAL PATIENT NAME:PITO VARELA : 1955 GENDER: Female ORDERING PROVIDER:YEN FIGUEROA MD CLINICAL STATEMENT: CAD pt states dr concerned about calcium seen on low dose ct chest previously denies any cp or sob states family hx of cardiac disease no ca no surg. TECHNIQUE: 1. Noncontrast CT of the heart was obtained for calcium scoring. 2. CTA with 105 c.c Omnipaque 350 IV contrast performed using prospective ECG gating about 1 cm above the AV to the diaphragm. FOV is very small to best evaluate the coronary arteries. Non-coronary chest anatomy is evaluated by Radiologist (Split read). Cumulative dose is 8.89 mSv 3. 3D postprocessing: MPR, MIP, +/- CPR, and volume rendering were performed. 4. This exam was performed according to our departmental dose optimization program, and includes the following measures where applicable: automated exposure control, adjustment of the mAs and/or kVp according to patient size and/or exam, and an iterative reconstruction algorithm. 5. This report adheres to SCCT / ACR / NASCI 2016 expert consensus document entitled, CAD-RADS(TM) Coronary Artery Disease - Reporting and Data System." MEDS: PO metoprolol (mg): \\X09\\100 mg IV metoprolol (mg): \\X09\\None Nitroglycerin (mg): \\X09\\0.4 SL COMPLICATIONS: None ACQUISITION HR (bpm): \\X09\\60, regular rhythm. TECHNICAL QUALITY: \\X09\\Good with minor artifact but good diagnostic quality. LIMITATIONS: \\[id number]\\None Abbreviations: LM: left main, RCA: right coronary artery, PDA: posterior descending artery, PLB: posterolateral branch, AM: acute marginal, LAD: left anterior descending, LCx: left circumflex artery, OM: obtuse marginal, Dx: diagonal, D1: first diagonal, D2: second diagonal, HR: heart rate, RI: ramus intermedius, PA: pulmonary artery FINDINGS: COMPARISON: None Most of the non-coronary chest anatomy is excluded in the FOV. CARDIAC FINDINGS: NON-CORONARY HEART: \\X0909\\Not enlarged. PERICARDIUM:\\X09\\Con tour preserved. No effusion. No thickening. No calcifications. AV: \\[id number]\\Tricuspid. No thickening. No calcifications. MV: \\[id number]\\Severe Annular Calcification noted . CORONARY CALCIUM SCORING Percentile (based on age/sex normogram): AGATSTON SCORE \\X09\\LM:\\X09\\0 \\X09\\LAD:\\X09\\193.8 \\X09\\LCx:\\X09\\44.6 \\X09\\RCA:\\X09\\72.6 \\X09\\TOTAL: 311 Calcium Volume (mm^3): Refer to PACS images for more information regarding calcium scoring ([email or web address]) DOMINANCE:\\X09\\Right ANATOMY:\\X09\\Normal origin and course. LM originates from L coronary sinus and RCA originates from R coronary sinus. LM gives rise to the LAD and LCx. . The LAD has diagonals. The LCX has obtuse marginals PDA and left posterolateral branches. The RCA is non dominant vessel. Coronary CTA interpretation utilizes diagonal branches to segment the LAD (prox, mid, distal) rather than the septal branches (as used on conventional angiography) as the latter are too small to visualize on CTA consistently. Left main: Patent without stenosis. LAD and diagonal branches: The proximal LAD has mild calcification with mild stenosis of 10 to 25%. The mid LAD has mild disease. The distal LAD is patent without stenosis. Left circumflex and obtuse marginal branches: Dominant vessel. Mild disease noted of proximal left circumflex coronary artery. Patent mid and distal left circumflex without stenosis Right coronary artery, PDA, and posterior lateral branches: Small non dominant vessel with mild disease. NON-CARDIAC FINDINGS: [] Please see separate radiologist report IMPRESSION: 1. Noncardiac findings were independently reported by Radiologist. See Radiologist interpretation in separate report. 2. CAD-RADS 2 3. Coronary Circulation Interpretation: Left main: Patent without stenosis. LAD and diagonal branches: The proximal LAD has mild calcification with mild stenosis of 10 to 25%. The mid LAD has mild disease. The distal LAD is patent without stenosis. Left circumflex and obtuse marginal branches: Dominant vessel. Mild disease noted of proximal left circumflex coronary artery. Patent mid and distal left circumflex without stenosis Right coronary artery, PDA, and posterior lateral branches: Small non dominant vessel with mild disease. 4. Agatston score: 311. Percentile (%): 88th for age and gender in asymptomatic individuals. CAD-RADS 2 Degree of Maximal Coronary Stenosis = 25-49% - Mild stenosis Interpretation = Minimal non-obstructive CAD Recommendation = Consider risk modification (aspirin, statin therapy, life style changes etc.,) Interpreted By: TAVARES AYON Preliminary Report By: TAVARES AYON Electronically Signed By: TAVARES AYON Dictated Date: 04/28/2024 4:37:47 PM Prelim Date: 04/28/2024 4:37:47 PM Sign Date: 04/28/2024 5:01:00 PM Ordering Provider:Yen Figueroa [facility] MAIN CT CORONARY EXTRACARDIACon 06-16-2023 CT CORONARY EXTRACARDIAC ORIGINAL EXAMINATION: CT THORAX WITH CONTRAST TTEIHZWTMEWD98/18/20 10:41 am TECHNIQUE: CT of the chest with the administration of intravenous contrast. Multiplanar reformatted images are provided for review. Automated exposure control, iterative reconstruction, and/or weight based adjustment of the mA/kV was utilized to reduce the radiation dose to as low as reasonably achievable. Cardiac images were obtained and reported separately in a report from cardiology. COMPARISON: None HISTORY: ORDERING SYSTEM PROVIDED HISTORY: Reason for Exam: CAD FINDINGS: The cardiac portion of the exam is reported separately by the cardiology service. MAIN PA: Non-dilated. No embolus centrally. AORTA: Moderate atherosclerosis. No ascending aneurysm. Most of the non-cardiac chest anatomy is excluded in the FOV. LUNGS: No consolidation. ABDOMEN: Unremarkable LYMPHATIC: No hilar or mediastinal adenopathy. BONES: No suspicious osseous lesion. IMPRESSION: 1. Cardiac portion of the exam is reported separately by the cardiology service. 2. No acute pulmonary abnormality. 3. Moderate aortic atherosclerosis. No ascending aortic aneurysm. Interpreted by: Abdulaziz Lazo DO Preliminary Report By: Abdulaziz Lazo DO Electronically signed By Abdulaziz Lazo DO Dictated Date: 04/16/2024 3:54:41 PM Prelim Date: 04/16/2024 4:04:48 PM Sign Date: 04/16/2024 4:04:48 PM Ordering Provider: YEN Welch [facility] MAIN LABORATORYOrdered By: SYSTEM SYSTEM on 02-07-2024 TSH Qn 1.54 m[IU]/L Normal 0.36 - 3.74 mcIU/mL AO ADM SS TSHRon 02-07-2024 TSH Qn 1.54 m[IU]/L Normal 0.36-3.74 [facility] Comment on above: Performed By: #### T SHR #### [address] [address] [place] MAMMOGRAM SCREENING BILAT ERAL W/TOMOon 12-26-2023 MA MAMMOGRAM SCREENING BILATERAL W/CORTEZ ORIGINAL FROM: [address] [address] PROCEDURE FOR: PITO VARELA [address] [place] [address] Home: PID#: [id number] Exam#: [id number] : 1955 Age: 68 TO: TELMA WALLER [employer] [facility] [address] [place], [place] [address] Fax: NO FAX EXAMINATION: SCREENING DIGITAL BILATERAL MAMMOGRAM WITH TOMOSYNTHESIS, 12/21/2023 3:21 pm TECHNIQUE: Screening mammography of the bilateral breasts was performed with tomosynthesis. 2D standard and 3D tomosynthesis combination imaging performed through both breasts in the MLO and CC projection. Computer aided detection was utilized in the interpretation of this exam. COMPARISON: 08/05/2020 HISTORY: Breast cancer screening. FINDINGS: BREAST DENSITY: There are scattered areas of fibroglandular density. 2.5 cm asymmetry with architectural distortion in the upper-outer quadrant of the left breast middle depth is unchanged, presumably benign. There are no significant masses or calcifications. IMPRESSION: No mammographic evidence of malignancy. Continued screening with annual mammograms is recommended. Radha zick risk calculations, generated with the history provided, report this patient's 10 year risk and lifetime risk for developing breast cancer at 2.8% and 5.0%, respectively. Based on this assessment tool, if the patient's calculated lifetime risk is below 20%, then the patient is considered at average risk for developing breast cancer. If the patient's calculated lifetime risk is at or above 20%, then the patient is considered high risk for developing breast cancer and may be a candidate for supplemental breast MRI screening in addition to annual mammographic screening per the [place] [employer]. BIRADS: BI-RADS: 2: Benign RECALL: 1 year screening RECALL TYPE: mammo LETTER SENT: Normal BI-RADS 1 and 2 Interpreted by: Franklyn Whitehead MD Preliminary Report By: Franklyn Whitehead MD Electronically signed By Franklyn Whitehead MD Dictated Date: 12/26/2023 9:00:10 PM Prelim Date: 12/26/2023 9:35:50 PM Sign Date: 12/26/2023 9:35:50 PM Ordering Provider: TELMA WALLER Prop Attendant: JASMIN FREDERICK RT(R)(M)(CT) letter sent: Normal BI-RADS 1 and 2 Mammogram BI-RADS: 2 Benign Normal [facility] ([place]) CT THORAX SCREENING W/O CONT RASTon 07-29-2024 CT THORAX SCREENING W/O CONTRAST ORIGINAL EXAMINATION: LOW DOSE SCREENING CT OF THE CHEST WITHOUT CONTRAST12/21/2023 5:04 pm TECHNIQUE: Low dose lung cancer screening CT of the chest was performed without the administration of intravenous contrast. Multiplanar reformatted images are provided for review. Automated exposure control, iterative reconstruction, and/or weight based adjustment of the mA/kV was utilized to reduce the radiation dose to as low as reasonably achievable. COMPARISON: None. HISTORY: ORDERING SYSTEM PROVIDED HISTORY: Reason for Exam: Lung Cancer Screening. CURRENT SMOKER: 40 PACK YEARS + 2 PIPE BOWLS A DAY x20 YEARS. FINDINGS: The heart is normal in size. No pericardial thickening. Small pericardial effusion. Small amount of pericardial recess fluid. Atherosclerosis seen of the coronary arteries and aorta. Dense mitral annulus calcifications. The great vessels appear normal in caliber. Visualized thyroid is grossly unremarkable. No lymphadenopathy is visible on this unenhanced exam. No suspicious findings seen in the visualized portion of the abdomen. The abdomen is not evaluated in detail. No pulmonary consolidation is identified. No pneumothorax or pleural effusion.Few areas of mucous plugging noted within the right lower lobe. Scattered pleuroparenchymal scarring. Mild emphysematous changes. Mosaic attenuation the lungs consistent with air trapping or small airway disease. 3 mm triangular-shaped nodule with a thin pleural attachment within the left upper lobe most likely represents an intrapulmonary lymph node (series 3, image 93), additional scattered likely intrapulmonary lymph nodes within example seen along the right major fissure (series 3, image 239). There are scattered bilateral pulmonary nodules measuring less than 6 mm. Example right upper lobe nodule measures 5 mm (series 3, image 116). As well as a 5 mm nodule within the right middle lobe (series 3, image 303). No aggressive osseous lesions visible. Degenerative changes seen in the spine. Likely degenerative sclerosis involving the T7 through T10 vertebral bodies. IMPRESSION: Small lung nodules. For patients with appropriate lung cancer risk, annual CT screening is recommended. Coronary atherosclerosis. Dense mitral annulus calcifications. Mild emphysema. Small pericardial effusion Information below is for Lung nodule tracking purposes: Nodule: S3 Other Findings: P-CAC Change: Na Recall : 1yr scr Recall Type: LDCT LungRads: 2s I have personally reviewed the images of this examination and agree with the resident's findings and interpretation. Interpreted by: Patrick Schultz MD Preliminary Report By: Fer Briggs Electronically signed By Patrick Schultz MD Dictated Date: 12/25/2023 9:20:35 AM Prelim Date: 12/25/2023 11:58:53 AM Sign Date: 12/25/2023 11:58:53 AM Ordering Provider: TELMA WALLER [facility] ([place]) .Auto Diffon 03-18-2023 Basophil, Absolute 0.1 10 3/mcL Normal 0.0-0.2 [facility] ([place]) Comment on above: Performed By: #### C MP, GFR, CBC, ANEU, ADIFF, LIPID, VIDH #### [address] [address] Basophils/100 WBC (Bld) 1.4 % Normal 0.0-2.5 A [facility] ([place]) Comment on above: Performed By: #### C MP, GFR, CBC, ANEU, ADIFF, LIPID, VIDH #### [address] [address] Eosinophil, Absolute 0.3 10 3/mcL Normal 0.0-0.4 [facility] ([place]) Comment on above: Performed By: #### C MP, GFR, CBC, ANEU, ADIFF, LIPID, VIDH #### [address] [address] Eosinophils/100 WBC (Bld) 3.7 % Normal 0.0-7.0 [facility] ([place]) Comment on above: Performed By: #### C MP, GFR, CBC, ANEU, ADIFF, LIPID, VIDH #### [address] [address] Lymphocyte, Absolute 2.4 10 3/mcL Normal 0.8-3.9 [facility] ([place]) Comment on above: Performed By: #### C MP, GFR, CBC, ANEU, ADIFF, LIPID, VIDH #### [address] [address] Lymphocytes/100 WBC (Bld) 30.3 % Normal 10.0-50.0 [facility] ([place]) Comment on above: Performed By: #### C MP, GFR, CBC, ANEU, ADIFF, LIPID, VIDH #### [address] [address] Monocyte, Absolute 0.6 10 3/mcL Normal 0.2-1.0 [facility] ([place]) Comment on above: Performed By: #### C MP, GFR, CBC, ANEU, ADIFF, LIPID, VIDH #### [address] [address] Monocytes/100 WBC (Bld) 7.9 % Normal 1.7-13.0 A [facility] ([place]) Comment on above: Performed By: #### C MP, GFR, CBC, ANEU, ADIFF, LIPID, VIDH #### [address] [address] Neutrophils/100 WBC (Bld) 56.7 % Normal 37.0-80.0 [facility] ([place]) Comment on above: Performed By: #### C MP, GFR, CBC, ANEU, ADIFF, LIPID, VIDH #### [address] [address] .GFRon 03-18-2023 GFR 65 ml/min/1.73sqm Normal [facility] ([place]) Comment on above: Result Comment: GFR Population mean for , Non- Americans Ages 20-29 = 116 mL/min/1.73 sq.m. Ages 30-39 = 107 mL/min/1.73 sq.m. Ages 40-49 = 99 mL/min/1.73 sq.m. Ages 50-59 = 93 mL/min/1.73 sq.m. Ages 60-69 = 85 mL/min/1.73 sq.m. Ages 70+ = 75 mL/min/1.73 sq.m. Chronic Kidney Disease: Less than 60 mL/min/1.73 square meters End Stage Renal Disease: Less than 15 mL/min/1.73 square meters Performed By: #### C MP, GFR, CBC, ANEU, ADIFF, LIPID, VIDH #### [address] [address] GFR Non- 54 ml/min/1.73sqm Normal [facility] ([place]) Comment on above: Result Comment: GFR Population mean for , Non- Americans Ages 20-29 = 116 mL/min/1.73 sq.m. Ages 30-39 = 107 mL/min/1.73 sq.m. Ages 40-49 = 99 mL/min/1.73 sq.m. Ages 50-59 = 93 mL/min/1.73 sq.m. Ages 60-69 = 85 mL/min/1.73 sq.m. Ages 70+ = 75 mL/min/1.73 sq.m. Chronic Kidney Disease: Less than 60 mL/min/1.73 square meters End Stage Renal Disease: Less than 15 mL/min/1.73 square meters Performed By: #### C MP, GFR, CBC, ANEU, ADIFF, LIPID, VIDH #### [address] [address] .NEUABSon 03-18-2023 Neutrophil, Absolute 4.5 10 3/mcL Normal 2.9-6.2 [facility] ([place]) Comment on above: Performed By: #### C MP, GFR, CBC, ANEU, ADIFF, LIPID, VIDH #### [address] [address] CBCon 03-18-2023 Erythrocyte distribution width (RBC) [Ratio] 14.4 % Normal 11.5-14.5 [facility] ([place]) Comment on above: Performed By: #### C MP, GFR, CBC, ANEU, ADIFF, LIPID, VIDH #### [address] [address] Hematocrit (Bld) [Volume fraction] 47.9 % High 37.0-47.0 [facility] ([place]) Comment on above: Performed By: #### C MP, GFR, CBC, ANEU, ADIFF, LIPID, VIDH #### [address] [address] Hgb 16.0 G/dL Normal 12.0-16.0 [facility] ([place]) Comment on above: Performed By: #### C MP, GFR, CBC, ANEU, ADIFF, LIPID, VIDH #### [address] [address] MCH (RBC) [Entitic mass] 29.7 pg Normal 27.0-31.2 [facility] ([place]) Comment on above: Performed By: #### C MP, GFR, CBC, ANEU, ADIFF, LIPID, VIDH #### [address] [address] MCHC 33.3 G/dL Normal 33.0-37.0 [facility] ([place]) Comment on above: Performed By: #### C MP, GFR, CBC, ANEU, ADIFF, LIPID, VIDH #### [address] [id number] MCV (RBC) [Entitic vol] 89.2 fL Normal 80.0-94.0 A [facility] ([place]) Comment on above: Performed By: #### C MP, GFR, CBC, ANEU, ADIFF, LIPID, VIDH #### [address] [address] Platelet 315 10 3/mcL Normal 130-400 [facility] ([place]) Comment on above: Performed By: #### C MP, GFR, CBC, ANEU, ADIFF, LIPID, VIDH #### [address] [address] Platelet mean volume (Bld) [Entitic vol] 7.9 fL Normal 7.4-10.4 [facility] ([place]) Comment on above: Performed By: #### C MP, GFR, CBC, ANEU, ADIFF, LIPID, VIDH #### [address] [address] RBC 5.37 10 6/mcL Normal 4.20-5.40 [facility] ([place]) Comment on above: Performed By: #### C MP, GFR, CBC, ANEU, ADIFF, LIPID, VIDH #### [address] [address] WBC 7.9 10 3/mcL Normal 4.6-10.8 [facility] ([place]) Comment on above: Performed By: #### C MP, GFR, CBC, ANEU, ADIFF, LIPID, VIDH #### [address] [address] CMPon 03-18-2023 Albumin Level 4.2 G/dL Normal 3.4-4.8 [facility] ([place]) Comment on above: Performed By: #### C MP, GFR, CBC, ANEU, ADIFF, LIPID, VIDH #### [address] [address] Albumin/Globulin [Mass ratio] 1.2 {ratio} Normal 1.1-2.5 [facility] ([place]) Comment on above: Performed By: #### C MP, GFR, CBC, ANEU, ADIFF, LIPID, VIDH #### [address] [address] ALP [Catalytic activity/Vol] 125 U/L Normal 40-135 [facility] ([place]) Comment on above: Performed By: #### C MP, GFR, CBC, ANEU, ADIFF, LIPID, VIDH #### [address] [address] ALT [Catalytic activity/Vol] 28 U/L Normal 14-59 [facility] ([place] Comment on above: Performed By: #### C MP, GFR, CBC, ANEU, ADIFF, LIPID, VIDH #### [address] [address] AST [Catalytic activity/Vol] 17 U/L Normal 10-40 [facility] ([place] Comment on above: Performed By: #### C MP, GFR, CBC, ANEU, ADIFF, LIPID, VIDH #### [address] [address] Bili Total 0.5 mg/dL Normal 0.2-1.0 [facility] ([place]) Comment on above: Result Comment: Use of this assay is not recommended for patients undergoing treatment with eltrombopag due to the potential for falsely elevated results. Performed By: #### C MP, GFR, CBC, ANEU, ADIFF, LIPID, VIDH #### [address] [address] BUN/Creatinine Ratio 15 ratio Normal 7-27 [facility] ([place]) Comment on above: Performed By: #### C MP, GFR, CBC, ANEU, ADIFF, LIPID, VIDH #### [address] [address] Calcium [Mass/Vol] 10.1 mg/dL Normal 8.4-10.2 [facility] ([place]) Comment on above: Performed By: #### C MP, GFR, CBC, ANEU, ADIFF, LIPID, VIDH #### [address] [address] Chloride [Moles/Vol] 103 mmol/L Normal 98-107 [facility] ([place] Comment on above: Performed By: #### C MP, GFR, CBC, ANEU, ADIFF, LIPID, VIDH #### [address] [address] CO2 [Moles/Vol] 26 mmol/L Normal 23-31 [facility] ([place]) Comment on above: Performed By: #### C MP, GFR, CBC, ANEU, ADIFF, LIPID, VIDH #### [address] [address] Creatinine [Mass/Vol] 1.02 mg/dL Normal 0.55-1.02 [facility] ([place]) Comment on above: Performed By: #### C MP, GFR, CBC, ANEU, ADIFF, LIPID, VIDH #### [address] [address] Electrolyte Balance 9.0 mEq/L Normal 4.0-15.0 [facility] ([place]) Comment on above: Performed By: #### C MP, GFR, CBC, ANEU, ADIFF, LIPID, VIDH #### [address] [address] Globulin 3.4 G/dL Normal [facility] ([place]) Comment on above: Performed By: #### C MP, GFR, CBC, ANEU, ADIFF, LIPID, VIDH #### [address] [address] Glucose [Mass/Vol] 102 mg/dL Normal 80-115 [facility] ([place]) Comment on above: Performed By: #### C MP, GFR, CBC, ANEU, ADIFF, LIPID, VIDH #### [address] [address] Potassium [Moles/Vol] 4.9 mmol/L Normal 3.5-5.1 [facility] ([place]) Comment on above: Performed By: #### C MP, GFR, CBC, ANEU, ADIFF, LIPID, VIDH #### [address] [address] Sodium [Moles/Vol] 138 mmol/L Normal 136-145 [facility] ([place]) Comment on above: Performed By: #### C MP, GFR, CBC, ANEU, ADIFF, LIPID, VIDH #### [address] [address] Total Protein 7.6 G/dL Normal 6.4-8.2 [facility] ([place]) Comment on above: Performed By: #### C MP, GFR, CBC, ANEU, ADIFF, LIPID, VIDH #### [address] [address] Urea nitrogen [Mass/Vol] 15 mg/dL Normal 7-18 [facility] ([place]) Comment on above: Performed By: #### C MP, GFR, CBC, ANEU, ADIFF, LIPID, VIDH #### [address] [address] LIPIDon 03-18-2023 Cholesterol [Mass/Vol] 213 mg/dL High 0-200 [facility] ([place]) Comment on above: Result Comment: Chol esterol Reference Interval: Less than 200 Desirable 200-239 Borderline high risk 240 and above High risk Performed By: #### C MP, GFR, CBC, ANEU, ADIFF, LIPID, VIDH #### [address] [address] Cholesterol in HDL [Mass/Vol] 94 mg/dL High 40-60 [facility] ([place] Comment on above: Performed By: #### C MP, GFR, CBC, ANEU, ADIFF, LIPID, VIDH #### [address] [address] Cholesterol in LDL [Mass/Vol] 110 mg/dL Normal 0-130 [facility] ([place]) Comment on above: Performed By: #### C MP, GFR, CBC, ANEU, ADIFF, LIPID, VIDH #### [address] [address] Triglyceride [Mass/Vol] 46 mg/dL Normal 0-150 A [facility] ([place]) Comment on above: Result Comment: Trig lyceride Reference Interval: Less than 150 Normal 150-199 Borderline high risk 200-499 High risk 500 or higher Very high risk Performed By: #### C MP, GFR, CBC, ANEU, ADIFF, LIPID, VIDH #### [address] [address] VIDHon 03-18-2023 Vit. D 25-Hydroxy 58.0 ng/mL Normal [facility] ([place]) Comment on above: Result Comment: Inte rpretive Values Based on Total 25(OH) Vitamin D: Deficient <20 ng/mL Insufficient 20 - <30 ng/mL Sufficient 30-100 ng/mL Performed By: #### C MP, GFR, CBC, ANEU, ADIFF, LIPID, VIDH #### [address] [address] LABORATORYOrdered By: Morgan Menon on 03-10-2023 Albumin DL <= 20 mg/L (U) [Mass/Vol] 132 mcg/dL Invalid Interpretation Code AO ADM SS Albumin/Creatinine DL <= 20 mg/L (U) [Mass ratio] Unable to calcu Invalid Interpretation Code 0 - 30 AO Chemistry S Comment on above: Result Comment: Unab le to calculate this test result accurately. Results used to calculate this test are outside the reportable range. Creatinine (U) [Mass/Vol] mg/dL Invalid Interpretation Code 28.0 - 117.0 mg/dL AO ADM SS MALBRon 03-10-2023 U Creatinine <13.0 Low 28.0-117.0 [facility] ([place]) Comment on above: Performed By: #### M ALBR #### [address] [place], [place] [address] U Microalb 132 mcg/dL Normal [facility] ([place]) Comment on above: Performed By: #### M ALBR #### [address] [place], [place] [address] U Ratio Alb/Cre Unable to calcu Normal 0-30 [facility] ([place]) Comment on above: Result Comment: Unab le to calculate this test result accurately. Results used to calculate this test are outside the reportable range. Performed By: #### M ALBR #### [address] [place], [place] [address] Vital Signs Date Time Vital Sign Value Performing Clinician Forrest rodriguez 04-15-2024 10:34-[address] Cuff [address] YEN FIGUEROA MD [address] 04-15-2024 10:34-[address] YEN FIGUEROA MD [address] 04-15-2024 10:34-[address] YEN FIGUEROA MD [address] [place] [address] 04-15-2024 10:34-0500 Diastolic Blood Pressure Non-Invasive 96 mm[Hg] DR YEN FIGUEROA MD [address] 04-15-2024 10:34-0500 Heart rate 70 /min DR YEN FIGUEROA MD [address] 04-15-2024 10:34-0500 Respiratory rate 18 /min DR YEN FIGUEROA MD [address] 04-15-2024 10:34-0500 Systolic Blood Pressure Non-Invasive 163 mm[Hg] DR YEN FIGUEROA MD [address] 04-15-2024 10:28-[address] Pressure Cuff Size DR YEN FIGUEROA MD [address] 04-15-2024 10:28-[address] YEN FIGUEROA MD [address] [place] [address] 04-15-2024 10:28-[address] YEN FIGUEROA MD [address] [place] [address] 04-15-2024 10:28-0500 Diastolic Blood Pressure Non-Invasive 86 mm[Hg] DR YEN FIGUEROA MD [address] [place] [address] 04-15-2024 10:28-0500 Heart rate 72 /min DR YEN FIGUEROA MD [address] [place] [address] 04-15-2024 10:28-0500 Systolic Blood Pressure Non-Invasive 139 mm[Hg] DR YEN FIGUEROA MD [address] [place] [address] 04-15-2024 10:17-05[address] Blood Pressure Cuff Size DR YEN FIGUEROA MD [address] [place] [address] 04-15-2024 10:17-[address] YEN FIGUEROA MD [address] [place] [address] 04-15-2024 10:17-[address] YEN FIGUEROA MD [address] [place] [address] 04-15-2024 10:17-0500 Diastolic Blood Pressure Non-Invasive 79 mm[Hg] DR YEN FIGUEROA MD [address] [place] [address] 04-15-2024 10:17-0500 Heart rate 58 /min DR YEN FIGUEROA MD [address] [place] [address] 04-15-2024 10:17-0500 Systolic Blood Pressure Non-Invasive 141 mm[Hg] DR YEN FIGUEROA MD [address] [place] [address] 04-15-2024 08:26-0500 Body temperature 98.78 [degF] DR YEN FIGUEROA MD [address] [place] [address] 04-15-2024 08:26-0500 Respiratory rate 18 /min DR YEN FIGUEROA MD [address] [place] [address] 04-12-2024 14:53-0500 Body height [address] YEN FIGUEROA MD [facility] 04-12-2024 14:53-0500 Body weight [address] YEN FIGUEROA MD [facility] 04-12-2024 14:53-0500 Body weight 29.3 kg/m2 DR YEN FIGUEROA MD [facility] Encounters Encounter Date Encounter Type Care Provider Facility Start: 08-21-2024 Encounter for genera l adult medical examination without abnormal findings Telma Waller NP [facility] Start: 08-13-2024 End: 08-13-2024 ambulatory Telma Waller [employer] Work Phone: [facility] Work Phone: Start: 08-13-2024 End: 08-13-2024 Patient encounter procedure Telma Waller [employer] -Laboratory Work Phone: Start: 08-13-2024 End: 08-13-2024 ambulatory Telma Waller NP Facility:[facility] Start: 08-07-2024 End: 08-11-2024 ambulatory TELMA WALLER [employer] Facility:[facility] Start: 04-15-2024 End: 04-15-[address] YEN FIGUEROA MD Facility: Start: 04-15-2024 End: 04-15-[address] YEN FIGUEROA MD [facility] Start: 02-14-2024 End: 02-14-[address] YEN FIGUEROA MD Facility:[facility] Start: 02-14-2024 End: 02-14-[address] YEN FIGUEROA MD [facility] Start: 02-07-2024 End: 02-07-2024 ambulatory TELMA WALLER [employer] Facility:[facility] Start: 02-07-2024 End: 02-07-[address] YEN FIGUEROA MD [facility] Start: 12-21-2023 End: 12-21-2023 ambulatory TELMA Jose CHRISTIN [employer] Facility:[facility] Start: 12-21-2023 End: 12-21-2023 Patient encounter procedure TELMA Jose CHRISTIN [employer] [facility] Start: 03-18-2023 End: 03-18-2023 ambulatory TELMA Jose CHRISTIN [employer] Facility:[facility] Start: 03-10-2023 End: 03-14-2023 ambulatory TELMA Jose CHRISTIN [employer] Facility:[facility] Start: 03-10-2023 End: 03-14-2023 Outreach Lab TELMA Jose CHRISTIN [employer] [facility] Start: 08-25-2022 End: 08-25-2022 Patient encounter procedure TELMA A CHRISTIN [employer] [facility] Procedures Date Procedure Procedure Detail Performing Clinician Start: 09-26-2017 Extraction of cataract TELMA WALLER APRN-[employer] Tonsillectomy DR YEN Hamlin Tubal ligation done DR YEN FIGUEROA MD Immunizations Immunization Date Immunization Notes Care Provider Fa cili 11-27-2023 tetanus toxoid, redu niru diphtheria toxoid, and acellular pertussis vaccine, adsorbed; Translations: [Boostrix (Tdap)] TELMA WALLER APRN[employer] [facility] 03-10-2023 Pneumococcal conjuga te PCV20, polysaccharide [id number] conjugate, adjuvant, PF; Translations: [Prevnar 20] TELMA WALLER [facility] [facility] 03-10-2023 influenza, high dose seasonal, preservative-free; Translations: [Fluad Quadrivalent PF ] TELMA WALLER [employer] [facility] 04-01-2022 influenza, high dose seasonal, preservative-free TELMA WALLER APRN[employer] [facility] Comment on above: Early/Late Reason: E elie/Late Reason: Schedule Conflict 04-01-2022 COVID-19, mRNA, LNP- S, bivalent booster, PF, 30 mcg/0.3 mL dose; Translations: [Pfizer-WindowsWearNTech COVID-19 (12y+) Bivalent Booster Vaccine PF] TELMA WALLER [employer] [facility] Comment on above: Early/Late Reason: E elie/Late Reason: Schedule Conflict 04-01-2022 SARSCoV2 mRNA(emmeupubwhl55d+)biv al vac 3; Translations: [Pfizer-BioNTech COVID-19 (12y+) Bivalent Booster Vaccine PF] TELMA WALLER APRN[employer] [facility] Comment on above: Early/Late Reason: E elie/Late Reason: Schedule Conflict 03-20-2021 SARS-CoV-2 mRNA (tozinameran) vaccine TELMA WALLER [employer] [facility] Comment on above: Result Comment: 2021: [id number] 03-14-2021 influenza virus vacc ine, unspecified formulation TELMA WALLER [employer] [facility] 08-25-2020 SARS-CoV-2 mRNA (tozinameran) vaccine TELMA WALLER [employer] [facility] 08-04-2020 SARS-CoV-2 mRNA (deangeloeran) vaccine TELMA WALLER [employer] [facility] Comment on above: Result Comment: 2021: [id number] 03-27-2020 influenza virus vacc ine, unspecified formulation TELMATC WALLER [employer] [facility] Comment on above: Result Comment: [facility] 05-04-2019 influenza virus vacc ine, unspecified formulation TELMATC ANDERSONER [employer] [facility] 11-12-2018 pneumococcal conjuga te vaccine, 13 valent TELMATC ANDERSONER [employer] [facility] 03-18-2018 influenza virus vacc ine, unspecified formulation TELMATC ANDERSONER [employer] [facility] 03-29-2017 influenza virus vacc ine, unspecified formulation TELMATC ANDERSONER [employer] [facility] 03-12-2016 influenza virus vacc ine, unspecified formulation TELMATC ANDERSONER [employer] [facility] 02-26-2014 influenza virus vacc ine, unspecified formulation TELMA ANDERSONER [employer] [facility] 11-01-2012 tetanus toxoid, redu niru diphtheria toxoid, and acellular pertussis vaccine, adsorbed TELMATC ANDERSONER [employer] [facility] Payers Date Payer Category Payer Self-pay 2023 Unknown [id number] 2006 Unknown [employer] [id number] 1955 Unknown [id number] 2.16.8 [id number] 1955 Unknown [id number] 2.16.8 [id number] 1955 Unknown [id number] 2.16.8 [id number] 1955 Unknown [id number] 2.16.8 [id number] 1955 Unknown [id number] 2.16.8 [id number] 1955 Unknown [id number] 2.16.8 [id number] 1955 Unknown [id number] 2.16.8 [id number] Medicare MEDICARE PART A B 0 [id number] Unknown [id number] 2.16.8 [id number] Social History Date Type Detail Facility Start: 07-29-2020 Tobacco smoking status Light t obacco smoker (finding) [facility] Sex Assigned At [facility] Tobacco Nicotine Use: 1 pack of cigarettes . [facility] Start: 02-01-2024 Tobacco smoking status Heavy t obacco smoker (finding) [facility] Start: 08-03-2020 Tobacco smoking stat us IDIS Smokes tobacco daily (finding) [facility] Start: 08-24-2022 None None [facility] Start: 08-24-2022 Homeless Homeless [facility] Start: 08-24-2022 Cigarettes Cigarettes [facility] Start: 08-21-2024 Sex Female (finding) [facility] Start: 1955 Sex Assigned At Female [facility] Functional Status Date Assessment Result Facility 04-15-2024 Functional Status Assistive Device None A [facility] 04-15-2024 Functional Status Standard Safety ID band on [facility] 04-12-2024 Functional Status Sensory Deficits None A [facility] Mental Status Date Assessment Result Facility 04-15-2024 Mental Status Orientation Oriented x 4 [facility] 04-15-2024 Mental Status [facility] Clinical Notes 08-25-2022 to 04-15-2024 Note Date & Type Note Facility 04-15-2024 Hospital Discharg e instructions Patient Education 04/15/2024 10:27:07 Radiology- CT Coronary Angiogram 03/08/2024 (CUSTOM) WHITTIER Coronary CT Angiogram (Coronary CTA or Cardiac CTA) Discharge Instructions [facility] [address] [place] [address] Today, you had a Coronary CT Angiogram. This procedure was done to look at the anatomy of your heart and the surrounding vessels. The images obtained are to help evaluate the presence of coronary heart disease. These instructions should be followed after your procedure to reduce the chance of experiencing complications. Please follow the instructions below to reduce the chance of experiencing complications. Activity: Rest for the remainder of the day. You may resume your normal activity tomorrow. Avoid alcoholic beverages for 24 hours after your procedure. Do not drive or operate heavy machinery for 24 hours after your procedure. Do not make any legal decisions for 24 hours after your procedure. Diet: Resume your normal diet as tolerated. Medication: Please resume medications as scheduled. When to seek medical help: Arm, neck or jaw pain Angina (chest pain) or chest discomfort Shortness of breath Dizziness or lightheaded Hives or itching If you experience any of these issues during the first 24 hours, please follow the instruction below or go to the Emergency Department: 8:00 am- 5:00 pm call [phone] After 24 hours, contact the physician who ordered this procedure for you. Obtaining test results: Please make an appointment with your doctor to obtain your test results. They are usually available within 4 to 5 business days. Do not assume everything is normal if you have not heard from your doctor or medical facility. It is important for you to follow up on all of your test results. Follow Up Care 02/02/2024 08:26:37 With:YEN FIGUEROA MD Address: [address] [place] [phone] When: Unknown Comments:Follow-up as scheduled Follow-up as needed With:Go to emergency room if symptoms worsen Address:Unknown When: Unknown [facility] 04-15-2024 Summary of episod e note Discharge Instructions Thank you for allowing [facility] to assist you with your healthcare needs. The following is important discharge information regarding your hospital visit. What to do next Scheduled Follow-Up Appointments Appointment Type When Where Contact Information StatusyyCT Coronary Extracardiac 04/15/2024 10:[address] Confirmed Follow Up Appointments Follow Up with YEN FIGUEROA MD Where:[address] [place] [phone] Additional Information: Follow-up as scheduled Follow-up as needed Follow Up with Go to emergency room if symptoms worsen Allergies NKA Medications Please ask your primary doctor or pharmacist before taking any other medication not listed, including over the counter drugs, herbal medications, vitamins and or supplements as they may interact with your home medications. What How Much When Why Instructions Last Dose Unchanged albuterol (albuterol MDI (90 mcg/ inh) CFC free inhalation aerosol) 2 puff(s) by inhalation Every 6 hours as needed for as needed for wheezing COPD without exacerbation Multiple lung nodules on CT Duration: 30 Days Unchanged amLODIPine (amLODIPine 5 mg oral tablet) 1 tab(s) by mouth Once a day COPD without exacerbation Duration: 30 Days Unchanged aspirin (aspirin 81 mg oral delayed release tablet) 1 tab(s) by mouth Every day Unchanged atorvastatin (atorvastatin 40 mg oral tablet) 1 tab(s) by mouth Every day Unchanged budesonide/ formoterol/ glycopyrrolate (Breztri Aerosphere 160 mcg-9 mcg-4.8 mcg/ inh inhalation aerosol) 2 puff(s) by inhalation Two (2) times a day COPD without exacerbation Multiple lung nodules on CT Duration: 90 Days rinse mouth and throat after use Unchanged cholecalciferol (Vitamin D3) 5,000 International unit by mouth Every day Unchanged docusate-senna (Stool Softener with Laxative) by mouth Daily at bedtime Unchanged famotidine (famotidine 10 mg oral tablet) 1 tab(s) by mouth Once a day Unchanged lisinopril (lisinopril 40 mg oral tablet) 2 tab(s) by mouth Once a day Duration: 90 Days filling in lieu of pcp Unchanged melatonin (melatonin 10 mg oral capsule) 1 cap by mouth Daily at bedtime as needed for for insomnia Unchanged metoprolol (Toprol-XL 50 mg oral tablet, extended release) 1 tab(s) by mouth Once a day Unchanged montelukast (montelukast 10 mg oral tablet) 1 tab(s) by mouth Once a day COPD without exacerbation Unchanged multivitamin with minerals (Multi-Day Plus Minerals oral tablet) 1 tab(s) by mouth Every day Please take this list to your next doctor s visit. Bring all medications you take, including over the counter medications, herbals and other supplements with you to your doctor s visit. Patients and families are reminded to discard old lists and to update any records with all medication providers or retail pharmacies. Education Materials WHITTIER Coronary CT Angiogram (Coronary CTA or Cardiac CTA) Discharge Instructions [facility] [address] [place] [address] Today, you had a Coronary CT Angiogram. This procedure was done to look at the anatomy of your heart and the surrounding vessels. The images obtained are to help evaluate the presence of coronary heart disease. These instructions should be followed after your procedure to reduce the chance of experiencing complications. Please follow the instructions below to reduce the chance of experiencing complications. Activity: Rest for the remainder of the day. You may resume your normal activity tomorrow. Avoid alcoholic beverages for 24 hours after your procedure. Do not drive or operate heavy machinery for 24 hours after your procedure. Do not make any legal decisions for 24 hours after your procedure. Diet: Resume your normal diet as tolerated. Medication: Please resume medications as scheduled. When to seek medical help: Arm, neck or jaw pain Angina (chest pain) or chest discomfort Shortness of breath Dizziness or lightheaded Hives or itching If you experience any of these issues during the first 24 hours, please follow the instruction below or go to the Emergency Department: 8:00 am- 5:00 pm call [phone] After 24 hours, contact the physician who ordered this procedure for you. Obtaining test results: Please make an appointment with your doctor to obtain your test results. They are usually available within 4 to 5 business days. Do not assume everything is normal if you have not heard from your doctor or medical facility. It is important for you to follow up on all of your test results. Additional Information VACCINATE! IT SAVES LIVES! Members of the community who have not yet received the COVID-19 vaccine and would like to receive it can visit one of [facility] vaccine clinics. There are many vaccine clinic locations within the [facility]. For locations and available times, please visit https://gettheshot.coronavirus.o pro.gov/. It is important to note that some COVID mobile vaccine clinics are held outdoors and may be canceled in rainy or stormy conditions. To learn more about pediatric vaccinations (ages 5-11), we invite you to visit the [employer] webpage. [email or web address].org/p [email or web address] [email or web address] To learn more about the COVID-19 vaccine, we invite you to visit the CDC website for a list of frequently asked questions.https://www.cdc.gov/co ronavirus/2019-ncov/vaccines/faq .html [employer] Patient Portal Access Instructions: Stay connected with your healthcare team and access your personal medical information anytime with the [employer] Patient Portal. Please follow the directions below to create your [employer] account: 1.Access the email account you provided upon registration to the hospital/physician office.2.Look for an invitation email from [facility].3.Open the email and access the invitation link: Accept Invitation to [employer].4.Fill in the required acosta to create your account. To access your account, visit [email or web address]. Click the blue button labeled "Access Patient Portal" and then log in with the username and password that you created in the steps above. You will be able to view your test results, lab results, a summary of your visits, upcoming appointments and more. There is also a convenient messaging option where you can send secure messages to your provider. In addition, you will have the ability to download any documents or summaries to your computer and/or send the information securely to a physician. Remember that your healthcare information is confidential, so carefully consider who you will allow to register on the [facility] for access to your information. You can also access the [facility] on the [employer] indu. Simply click on "Patient Portal" and then log into your account. If you would like to receive a full copy of your medical records, please contact the [facility] Medical Records Department by calling [phone], Monday through Monday between 8 a.m. and 4:30 p.m. HOW TO SAFELY DISPOSE OF PRESCRIPTION MEDICATIONS Please use one of the following methods to safely dispose of your unused medications. 1.Use a drug disposal kit: the drug disposal pouch allows you to safely discard your old and unused drugs. Ask your nurse to give you one when you are discharged.2.Visit a local take-back location: Many local pharmacies and police departments have programs that collect old and unwanted prescription drugs. Call your local pharmacy or go to http://Cloudwise/7Z0Mb6f to find one close to you.3.Make use of household items: Use cat litter or old coffee grounds to dispose medications if other options are not available. Mix your drugs with these household products, seal them in an airtight container and throw it into the garbage. Call [facility]: [phone] to be sure your drugs can be disposed of in this way. Some medicines may require a different approach.4.Never flush your medications down the toilet. IF YOU HAVE BEEN PRESCRIBED AN OPIOID FOR PAIN If you have been prescribed an opioid (such as hydrocodone, oxycodone or morphine), it is critical to understand the possible side effects and risks of opioid pain medications. Even when taken as directed, opioids can have several side effects including: Tolerance, meaning you might need to take more of a medication for the same pain relief. Nausea, vomiting and/or constipation. Sleepiness, dizziness, dry mouth, confusion, depression or itching. Physical dependence, meaning you have withdrawal symptoms when a medication is stopped, can develop within a few days. KNOW YOUR RESPONSIBILITIES It is important to know exactly how much and how often to take the opioid pain medications you are prescribed. Never take opioids in higher amounts or more often than prescribed. Do not combine opioids with alcohol or other drugs that cause drowsiness, such as benzodiazepines, also known as benzos, including diazepam and alprazolam, muscle relaxants or sleep aids. Never sell or share prescription opioids. This is illegal. Store opioids in a secure place and out of reach of others (including children, family, friends and visitors). The last page of this document has been signed and retained as a CHART COPY. Signatures Patient Education Materials Radiology- CT Coronary Angiogram 03/08/2024 (CUSTOM) Medication Leaflets My discharge plan and instructions have been reviewed and explained to me and I,PITO VARELA understand my current condition and have read and understand these discharge instructions. I have received a written copy of the plan/instructions. If I have questions, I am aware that I should contact my doctor. 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: Date/Time: Relationship to Patient: Witness Name/Signature: Date/Time: [facility] 02-14-2024 Note Exam Date Time Procedure Performing Provider Status 02/14/24 1:59 PM Echocardiogram, Adult - CV Auth (Verified) [facility] 07-01-2024 Evaluation + Plan note Future Scheduled Tests Radiology* XR Knee 1 or 2 Views Left 11/27/23 [facility] 07-01-2024 Evaluation + Plan note Future Scheduled Tests Radiology* XR Knee 1 or 2 Views Left 11/27/23 * CT Coronary Extracardiac 04/15/24 [facility] 10-13-2023 Evaluation + Plan note Future Scheduled Tests Laboratory* Complete Blood Count 03/10/23 * Complete Blood Count 04/01/22 * Lipid Profile 03/10/23 * Lipid Profile 04/01/22 * Vitamin D Level 04/01/22 * Complete Metabolic Panel 03/10/23 * Complete Metabolic Panel 04/01/22 * [facility] [place] Specimens) 08/24/22 Radiology* CT Low Dose Lung Cancer Screening (LDCT) 04/01/22 [facility] 03-30-2023 Evaluation + Plan note Diagnostic Tests Pending * Allergen, Alternaria tenuis 08/25/22 * Allergen, Aspergillus fumigatus 08/25/22 * Allergen, B[place] Grass 08/25/22 * Allergen, Cashew 08/25/22 * Allergen, Cat Dander 08/25/22 * Allergen, Dermatophagoides farinae 08/25/22 * Allergen, Dog Dander 08/25/22 * Allergen, Egg White 08/25/22 * Allergen, Egg Yolk 08/25/22 * Allergen, Brennan Grass 08/25/22 * Allergen, Milk 08/25/22 * Allergen, Peanut 08/25/22 * Allergen, Shrimp 08/25/22 * Allergen, Soybean 08/25/22 * Allergen, Wheat 08/25/22 Future Scheduled Tests Laboratory* Complete Blood Count 04/01/22 * Lipid Profile 04/01/22 * Vitamin D Level 04/01/22 * Complete Metabolic Panel 04/01/22 * [facility] [place] (Blood Specimens) 08/24/22 Radiology* CT Low Dose Lung Cancer Screening (LDCT) 04/01/22 * CT Low Dose Lung Cancer Screening (LDCT) 08/24/22 [facility] Evaluation + Plan note Future Appointments Appointment Date:04/15/2024 10:30:00 AM Scheduled Provider: Location:CT Appointment Type:*CT Coronary Angiography w+w/o Contrast Appointment Date:04/15/2024 10:45:00 AM Scheduled Provider: Location:CT Appointment Type:yyCT Coronary Extracardiac Future Scheduled Tests Radiology* XR Knee 1 or 2 Views Left 11/27/23 * CT Coronary Angiography w+w/o Contrast 04/15/24 * CT Coronary Extracardiac 04/15/24 [facility] Evaluation + Plan note Future Appointments Appointment Date:02/14/2024 01:00:00 PM Scheduled Provider: Location:RAD Appointment Type:Echo - Echocardiogram Adult Appointment Date:04/15/2024 10:30:00 AM Scheduled Provider: Location:CT Appointment Type:*CT Coronary Angiography w+w/o Contrast Appointment Date:04/15/2024 10:45:00 AM Scheduled Provider: Location:CT Appointment Type:yyCT Coronary Extracardiac Future Scheduled Tests Radiology* XR Knee 1 or 2 Views Left 11/27/23 * CT Coronary Angiography w+w/o Contrast 04/15/24 * CT Coronary Extracardiac 04/15/24 [facility] Evaluation noteNo assessment information available [facility] Work Phone: Hospital course Narrative No data available for this section [facility] Hospital Discharge instructions No data available for this section [facility] Progress note No data available for this section [facility] Reason for referral (narrative)No reason for [facility] Phone: Summary Purpose Family History No Family History Records Found Advance Directives No Advanced Directives Records FoundNo Advanced Directives Records FoundNo Advanced Directives Records FoundNo Advanced Directives Records Found Additional Source Comments Patient Care team informatio n (unrecognized section and content) Team Status: Active Member Role Status Dates Telma Waller NP, NP-Alessandro Primary Care Provider Activ e Team Status: Inactive Member Role Status Dates Telma Waller NP [employer]PER[employer]-C Primary Care Provider Activ e Start: August 13, 2024 End: August 13, 2024 Telma Waller NP, NP-C Attending Provider Active Start: August 13, 2024 End: August 13, 2024 INFORMATION SOURCE (unrecogn ized section and content) DATE CREATED AUTHOR 12/29/2023 [facility] ([place] DATE CREATED AUTHOR AUTHOR'S ORGANIZ ATION 04/29/2024 [facility] DATE CREATED AUTHOR AUTHOR'S ORGANIZ ATION 08/13/2024 [facility] DATE CREATED AUTHOR AUTHOR'S ORGANIZ ATION 08/23/2024 [facility] Goals (unrecognized section and content) Goals may be documented in a n alternate section FOR RECORDS PERTAINING TO PATIENTS WHO ARE OR HAVE BEEN ENROLLED IN A CHEMICAL DEPENDENCY/SUBSTANCEABUSE PROGRAM, SOME INFORMATION MAY BE OMITTED. This clinical summary was aggregated from multiple sources. Caution should be exercised in using it in the provision of clinical care. This summary normalizes information from multiple sources, and as a consequence, information in this document may materially change the coding, format and clinical context of patient data. In addition, data may be omitted in some cases. CLINICAL DECISIONS SHOULD BE BASED ON THE PRIMARY CLINICAL RECORDS. [employer] [facility]. provides no warranty or guarantee of the accuracy or completeness of information in this document.
--- NOTE | 2025-03-19 07:04 | RAD_ITS ---
PROCEDURE: KNEE 4 OR MORE VIEWS 03/19/2025 REASON FOR EXAM: PAIN TECHNIQUE: Procedure Code: RADKN Modality: DX Procedure: KNEE 4 OR MORE VIEWS Laterality: Left COMPARISON: None. FINDINGS: Bones: No acute bony abnormalities. Joints: Multi compartmental joint space narrowing with sclerosis consistent with osteoarthritis. Effusion: No fluid effusion. Soft tissues: Vascular atherosclerotic calcifications. RAD/Knee 4 or More Views IMPRESSION: Severe osteoarthritis. No acute bony abnormalities. Reading Location: [id number]
== END | disposition home or self-care (01) ==
LOC: RAD 06:50
PROVIDERS: PCP Registered Nurse; Referring Provider Physician Assistant; Visit Provider Physician Assistant
DX: M25.562 Pain in left knee (principal)
CPT/HCPCS: 73564